=== PATIENT | male | born 1995 | race Caucasian/White ===

== ENCOUNTER 2020-03-25 11:41 | Emergency (ER) | payer OTHER, SELFPAY ==
[2020-03-25 11:55] VITALS: BP 151/74; PULSE 99; RESP 16; TEMP 36.8; O2SAT 97
--- NOTE | 2020-03-25 12:05 | ED.WOUNDLAC ---
HPI - Wound/Laceration General Chief Complaint: Wound/Laceration Stated Complaint: cut above right eyebow Time Seen by Provider: 03/25/20 12:05 Source: patient and RN notes reviewed Mode of arrival: ambulatory Limitations: no limitations History of Present Illness HPI narrative: This is a 24 years old male presents to the office for an evaluation of laceration on his forehead prior to arrival. He was pulling out a wooden pole and it smacked him on his forehead. Denies loss of consciousness. Td is up-to-date. Related Data Home Medications Medication Instructions Recorded Confirmed No Home Medications 03/25/20 03/25/20 Allergies Allergy/AdvReac Type Severity Reaction Status Date / Time No Known Allergies Allergy Verified 03/25/20 11:59 Review of Systems Review of Systems: Narrative: CONSTITUTIONAL: Denies fever CARDIOVASCULAR: Denies chest pain, palpitation RESPIRATORY: Denies dyspnea GASTROINTESTINAL: Denies abdominal pain, vomiting, diarrhea. Reports nausea SKIN:Reports cut his forhead MUSCULOSKELETAL: Denies acute back pain NEUROLOGIC: Denies lightheaded/dizziness prior accident All other systems reviewed are negative, except as documented in HPI. PMFSH Comments At time of signature, I agree with nursing past medical, surgical, social and family history. There is no relevant family history pertinent to the presenting complaint. Exam Narrative: Exam Narrative: GENERAL: This is a well-nourished, well-developed patient, in no apparent distress. HEAD: right forehead above eyebrow noted laceration, gapping ~3cm lenghth. EYES: PERRL. EMOI. Sclera clear/white. Vision is grossly intact. CARDIOVASCULAR: Regular rate and rhythm without murmurs, gallops, or rubs. RESPIRATORY: Clear to auscultation. Breath sounds equal bilaterally. No wheezes, rales, or rhonchi. GASTROINTESTINAL: Abdomen soft, non-tender, nondistended. Bowel sounds are active. No hepato-splenomegaly, or palpable masses. No guarding. NEURO: awake, alert, and oriented to person, place and time. There were no obvious focal neurologic abnormalities. Steady gait Joy Coma Scale Eye Opening: Spontaneous 4 Joy Coma Scale Motor: Obeys Commands 6 Joy Coma Scale Verbal: Oriented 5 Course Vital Signs Vital signs: Vital Signs Temperature 98.2 F 03/25/20 11:55 Pulse Rate 99 03/25/20 11:55 Respiratory Rate 16 03/25/20 11:55 Blood Pressure 151/74 H 03/25/20 11:55 Pulse Oximetry 97 03/25/20 11:55 Temperature 98.2 F 03/25/20 11:55 Pulse Rate 99 03/25/20 11:55 Respiratory Rate 16 03/25/20 11:55 Blood Pressure 151/74 H 03/25/20 11:55 Pulse Oximetry 97 03/25/20 11:55 Procedures Laceration Laceration 1: Date: 03/25/20 Time: 12:19 Site: face Side (If applicable): right Size (cm): 3 Description: linear Depth: simple, single layer Local Anesthetic: lidocaine 1% Amount of anesthesia used (mL): 2 Pre-repair: wound explored and irrigated ====== Skin Level ====== Skin layer closed with: nylon Size (cm): 5-0 Number of sutures: 4 Technique: simple, interrupted ====== Subcutaneous Layer ====== ====== Muscle Layer ====== ====== Tendon Layer ====== MDM - Wound/Laceration MDM Narrative Medical decision making narrative: Discharge instructions reviewed with patient, as well as provided in writing per nursing staff. The instructions also include specific and strict return/GO TO THE ER as well as f/u information. All questions have been answered, and the patient deny any further questions with discharge and discharge plan. Patient is Urgent/Emergent. BP elevated due to current condition w/o HTN in PMH (Measure Met). Differential Diagnosis Differential diagnosis: Likely laceration, abrasion and avulsion of skin Critical Care Time Critical Care Time Critical Care Time: No Discharge Plan Di
== END 2020-03-25 12:48 | disposition home or self-care (01) ==
PROVIDERS: Emergency Provider Nurse Practitioner
DX: S01.81XA Laceration without foreign body of other part of head, initial encounter (principal); W22.8XXA Striking against or struck by other objects, initial encounter; J45.909 Unspecified asthma, uncomplicated
CPT/HCPCS: 12013; 99212; G0463

== ENCOUNTER 2024-06-05 17:03 | Emergency (ER) | payer BC, SELFPAY ==
[2024-06-05 17:18] VITALS: BP 146/83; PULSE 80; RESP 16; TEMP 36.6; O2SAT 100
--- NOTE | 2024-06-05 17:43 | ED.WOUNDLAC ---
HPI - Wound/Laceration General Chief Complaint: Wound/Laceration Stated Complaint: RT Hand Finget Cut Time Seen by Provider: 06/05/24 17:25 Source: patient, RN notes reviewed and old records reviewed Mode of arrival: ambulatory Limitations: no limitations History of Present Illness HPI narrative: 28-year-old male to [facility] for complaint of laceration to right pinky that occurred while working this afternoon. 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 Laceration present to proximal palmar phalanx of the 5th digit right hand. Bleeding controlled upon arrival. Patient reports Tdap is up-to-date. Patient denies numbness, tingling, weakness, decreased ROM , allergies, pertinent medical history. Patient Resting comfortably on stretcher in no acute distress. Related Data Allergies Allergy/AdvReac Type Severity Reaction Status Date / Time No Known Allergies Allergy Verified 06/05/24 17:28 Review of Systems Review of Systems: All systems reviewed & are unremarkable except as noted in HPI and below Constitutional: Constitutional: Reports no additional constitutional complaints Eyes: Eyes: Reports no additional eye complaints ENT: Reports system reviewed and no additional complaints, except as documented Cardiovascular: Cardiovascular: Reports no additional cardiovascular complaints, Denies chest pain and Denies dyspnea Respiratory: Respiratory: Reports no additional respiratory complaints, Denies cough and Denies dyspnea Musculoskeletal: Musculoskeletal: Reports no additional musculoskeletal complaints Integumentary/Breasts: Skin/Breast: Reports as per HPI and Reports wounds ( 1 cm laceration right palmar pinky) Neurologic: Reports system reviewed and no additional complaints, except as documented Psychiatric: Psychiatric: Reports no additional psychiatric complaints PMFSH Comments At the time of my signature, I reviewed and agree with the nursing past medical, surgical, social, and family history. There is no relevant family history pertinent to the patient complaint. Exam Const: General: cooperative, healthy appearing, comfortable, no acute distress, alert and well nourished Nutritional Appearance: well nourished Orientation/consciousness: patient oriented x3 Limitations: no limitations HENMT: Head: normal to inspection Ears: external ears normal Face/Nose/Sinus: Normal external nose present, Normal nares present, normal facial exam, No erythema and No edema Face and sinus: normal facial exam, no erythema and no edema Mouth: Yes Normal oral and palatal mucosa present Eyes: General: appearance normal, both eyes and all related structures Neck: Neck: normal visual inspection, full ROM and no meningeal signs Chest: Chest palpation & inspection: normal inspection of the chest Resp: Effort & Inspection: normal respiratory effort and able to speak in complete sentences Cardio: Jugular venous distension: no JVD Rate: regular rate Rhythm: regular rhythm Back/Spine/Pelvis: Cervical Spine: cervical ROM normal Skin: General skin exam: normal color and wounds noted Wounds: wounds noted laceration right palmar 5th finger size (1 cm) and open Neuro: General: patient oriented x3, gait normal, moves all extremities and no meningeal signs Speech: normal speech Gait exam (Neuro): Normal gait present Extrem: General: normal to inspection, full ROM and capillary refill normal Psych: Appearance: grossly normal and well kempt Course Course Emergency Course: Some parts of this dictation were generated by voice recognition software and may contain typographical and/or grammatical inaccuracies. Level of Care: Express Care Visit Vital Signs Vital signs: Vital Signs Temperature 36.6 C 06/05/24 17:18 Pulse Rate 80 06/05/24 17:18 Respiratory Rate 16 06/05/24 17:18 Blood Pressure 146/83 H 06/05/24 17:18 Pulse Oximetry 100 06/05/24 17:18
[2024-06-05] MEDS: LIDOCAINE HCL 1% LOCAL INJ 2 ML AMPUL 4 ML INFILTRATE (18:00)
== END 2024-06-05 18:32 | disposition home or self-care (01) ==
PROVIDERS: Emergency Provider Nurse Practitioner Family
DX: S61.216A Laceration without foreign body of right little finger without damage to nail, initial encounter (principal); W23.0XXA Caught, crushed, jammed, or pinched between moving objects, initial encounter; Y99.0 Civilian activity done for income or pay; S60.051A Contusion of right little finger without damage to nail, initial encounter
CPT/HCPCS: 12001; 99213; G0463; J2003

== ENCOUNTER 2024-06-15 10:58 | Emergency (ER) | payer OTHER, BC, SELFPAY ==
--- NOTE | 2024-06-15 11:01 | ED.WOUNDLAC ---
HPI - Wound/Laceration General Chief Complaint: Wound/Laceration Stated Complaint: stitch removal Time Seen by Provider: 06/15/24 11:01 Source: patient Mode of arrival: ambulatory Limitations: no limitations History of Present Illness HPI narrative: Julio Cesar is a 28-year-old male patient presenting to the clinic today for a suture removal. He suffered from a injury to his right 5th proximal volar finger. Has 3 interrupted sutures placed. Wound appears to be well healing. No other concerns. States he has completed his antibiotics as prescribed. Tetanus was up-to-date Related Data Home Medications Medication Instructions Recorded Confirmed No Home Medications 06/15/24 06/15/24 Allergies Allergy/AdvReac Type Severity Reaction Status Date / Time No Known Allergies Allergy Verified 06/15/24 11:23 Review of Systems Review of Systems: Pertinent positives per HPI. Patient denies any fever, chills, rash, headache, visual changes, dizziness, cough, runny nose, sore throat, shortness of breath, chest pain, palpitations, nausea, vomiting, diarrhea, constipation, abdominal pain, or any urinary issues. PMFSH Comments At the time of my signature, I reviewed and agree with the nursing past medical, surgical, social, and family history. There is no relevant family history pertinent to the patient complaint. Exam Narrative: General: Well-developed, well nourished, in no apparent distress Head: Normocephalic, atraumatic. Cardio: Regular rate and rhythm, s1 and s2 normal, no murmur appreciated. Resp: Clear to auscultation bilaterally, no rhonchi, rales, wheezing or rubs. Integumentary: Loco, warm, and dry, 3 interrupted sutures removed from the proximal volar right 5th finger. Patient tolerated well. Wound is well approximated and healing. No redness, swelling, or purulent discharge noted Course Course Emergency Course: Portions of this record may have been created with voice recognition software. Level of Care: Express Care Visit Vital Signs Vital signs: Vital signs reviewed MDM - Wound/Laceration MDM Narrative Medical decision making narrative: At the time of visit patient is resting comfortably on the exam table. Patient appears to be nontoxic. Procedures: 3 interrupted sutures were removed in the clinic using pickups and iris scissors. Patient tolerated procedure well. No bleeding or complications Plan: Patient here for suture removal. Sutures removed in the clinic today. Patient denies any other concerns. No signs of infection and wound appears to be healing. Supportive measures were discussed with the patient and they voiced understanding discharge instructions and agrees to treatment plan. Return precautions reviewed Differential Diagnosis Differential diagnosis: Likely laceration, abscess, abrasion, avulsion of skin and other (Suture removal, skin infection) Discharge Plan Discharge Clinical Impression: Encounter for removal of sutures Patient Disposition: Home, Self-Care Condition: Stable Instructions: Antibiotic Form, Stitches Removal (ED) Additional Instructions: 3 interrupted sutures were removed in the clinic today. Wound appears to be healing Keep wound clean and dry Wash for signs and symptoms of infection-redness, swelling, increase in pain, purulent discharge, streaking, or fever Follow-up with your primary care doctor as needed Prescriptions: No Action No Home Medications Follow-up/Referrals: PHYSICIAN,SALVAGE ENGINEERING TECHNICIAN [Primary Care Provider] - Time of Disposition: 11:28 Quality NIHSS Nursing Documentation ED NIHSS nursing documentation: reviewed/agree
[2024-06-15 11:07] VITALS: BP 128/74; PULSE 68; RESP 18; TEMP 36.4; O2SAT 100
[2024-06-15 11:23] VITALS: BP 128/74; PULSE 68; RESP 18; TEMP 36.4; O2SAT 100
== END 2024-06-15 11:30 | disposition home or self-care (01) ==
PROVIDERS: Emergency Provider Nurse Practitioner Family
DX: S61.216A Laceration without foreign body of right little finger without damage to nail, initial encounter (principal); X58.XXXA Exposure to other specified factors, initial encounter; J45.909 Unspecified asthma, uncomplicated
CPT/HCPCS: 99211; G0463